=== PATIENT | female | born 1945 | race Caucasian/White ===

== ENCOUNTER 2021-05-24 08:58 | Outpatient (REF) | payer MEDICARE, SELFPAY ==
[2021-05-24 09:24] LABS: MANUAL DIFF FLAG NO
[2021-05-24 09:45] LABS: Basophils Absolute Auto 0.1 X10*3/uL (0.0-0.2); Basophils Percent Auto 0.6 % (0-2); Eosinophils Absolute Auto 0.2 X10*3/uL (0.0-0.4); Eosinophils Percent Auto 2.5 % (0-4); Hematocrit 39.5 % (37-47); Hemoglobin 13.6 g/dl (12.0-16.0); Imm Gran Abs Auto 0.03 X10*3/uL (0.00-0.03); Imm Gran Pct Auto 0.3 % (0.0-0.4); Lymphocytes Absolute Auto 3.2 X10*3/uL (1.2-4.9); Lymphocytes Percent Auto 36.2 % (20-40); Mean Corpuscular HGB Conc 34.4 g/dl (31.0-35.0); Mean Corpuscular Hemoglobin 30.6 pg (27.0-33.0); Mean Platelet Volume 9.6 fL (9.4-12.3); Monocytes Absolute Auto 0.6 X10*3/uL (0.1-1.2); Monocytes Percent Auto 6.8 % (2-11); Neutrophils Absolute Auto 4.8 X10*3/uL (2.0-8.3); Neutrophils Percent Auto 53.6 % (45-73); Platelet Count 256 X10*3/uL (160-400); Red Blood Count 4.44 X10*6/uL (4.20-5.50); Red Cell Distribution Width 13.7 % (11.0-16.0)
[2021-05-24 10:12] LABS: Rheumatoid Factor < 15.0 IU/mL (<15.0)
[2021-05-24 10:14] LABS: Alanine Aminotransferase 21 U/L (0-31); Albumin Level 4.2 g/dL (3.5-5.0); Alkaline Phosphatase 111 U/L (39-117); Anion Gap 12 (12-20); Aspartate Amino Transferase 20 U/L (5-31); Bilirubin Total 0.2 mg/dL (0.0-1.0); Blood Urea Nitrogen 8 mg/dL (9-16); Calcium 9.2 mg/dL (8.4-10.2); Carbon Dioxide 27 mmol/L (22-29); Chloride 104 mmol/L (96-108); Cholesterol 183 mg/dL; Estimated Glomerular Filt Rate > 60; Glucose Fasting 114 mg/dL (60-99); HDL Cholesterol 41 mg/dL; LDL Cholesterol Calculated 101 mg/dl; Potassium 3.9 mmol/L (3.3-5.1); Sodium 139 mmol/L (135-145); Total Protein 6.8 g/dL (6.5-8.0); Triglycerides 206 mg/dL
[2021-05-24 11:37] LABS: Creatinine Urine 40.35 mg/dL; Microalbum/Creatinine Ratio Ur 12.3 ug/mg cr
[2021-05-29 15:16] LABS: Vitamin D 25-OH, D2 40 ng/mL; Vitamin D 25-OH, D3 18 ng/mL; Vitamin D 25-OH, Total 58 ng/mL (30-100)
== END 2021-05-24 08:59 | disposition home or self-care (01) ==
LOC: HO.LAB 08:58
PROVIDERS: Nurse Practitioner Family; PCP Internal Medicine; Visit Provider Internal Medicine
DX: E11.9 Type 2 diabetes mellitus without complications (principal); E78.5 Hyperlipidemia, unspecified; E55.9 Vitamin D deficiency, unspecified; M19.90 Unspecified osteoarthritis, unspecified site; I10 Essential (primary) hypertension
CPT/HCPCS: 36415; 80053; 80061; 82043; 82306; 85025; 86431

== ENCOUNTER 2021-06-05 09:57 | Outpatient (AMB) | payer OTHER, SELFPAY ==
[2021-06-05 10:00] VITALS: BP 112/74; PULSE 64; TEMP 36; O2SAT 96; BMI 32.0
--- NOTE | 2021-06-05 10:00 | A.OFFPC_ITS ---
Vital Signs 06/05/21 10:00 06/05/21 10:29 Height 4 ft 8 in Weight 143 lb BMI 32.0 BP 112/74 140/90 H Blood Pressure Location Lt brachial Position Sitting Pulse 64 Pulse Source Pulse Oximeter Temp 96.8 F Temp Source Temporal Artery Scan Pulse Oximetry (%) 96 Oxygen Delivery Method Simple Mask Intake Visit Reasons: PE Control Panel Assembler Required: Yes Accompanied by: Self / Same As Patient Allergies Penicillins [PENICILLINS] Allergy (Mild, Verified 06/05/21 10:19) RASH Medication List - Last Reconciled 06/05/21 by Jeffy Wayne PA-C amlodipine 5 mg PO DAILY 90 days atorvastatin 20 mg PO DAILY 90 days blood sugar diagnostic (FreeStyle Lite Strips) 1 strip miscellaneous BID 90 days calcium citrate 500 mg (2 x 250 mg calcium) PO DAILY 90 days cyclobenzaprine 10 mg PO BEDTIME 30 days dicyclomine 20 mg PO QID 30 days docusate sodium 100 mg PO BID 90 days dulaglutide (Trulicity) 0.75 mg (0.5 mL) subcut QWEEK 30 days ergocalciferol (vitamin D2) 1,250 mcg PO QWEEK 30 days escitalopram oxalate 10 mg PO DAILY 90 days gabapentin 400 mg (1/2 x 800 mg) PO BID 90 days ibuprofen 800 mg PO Q8H 30 days PRN insulin glargine (Lantus U-100 Insulin) 40 units (0.4 mL) subcut DAILY 30 days lancets (TRUEplus Lancets) Use 1 lancet once a day lisinopril 20 mg PO DAILY 90 days melatonin 5 mg PO BEDTIME 90 days omeprazole 40 mg PO DAILY 90 days ondansetron 4 mg PO Q12H 30 days pen needle, diabetic (BD Ultra-Fine Marcella Pen Needle) As directed 4 times a day Tobacco use date assessed: 06/05/21 Fall risk assessment: No Falls in past year Last assessed Fall Risk: 06/05/21 HPI PE HPI Details Patient is a 75-year-old female here today for annual physical. Patient has a past medical history significant for hypertension, diabetes, hyperlipidemia. .. DMII: Patient's A1c today is 6.4. Continues on Trulicity and insulin the treatment of her diabetes. VAccine: UTD with COVID vaccine ,needs flu vaccine , UTD with tdap, NEed PCV. .. Mammo: Is interested in getting mammo will place the order .. [facility] Medical History Arthritis Diabetes Dyslipidemia Essential (primary) hypertension Surgical History History of section History of laparoscopic cholecystectomy Family History Father Hypertension Stroke Mother No problems noted. Son No problems noted. Brother No problems noted. Brother No problems noted. Brother No problems noted. Sister No problems noted. Daughter No problems noted. Daughter No problems noted. Social History Housing: Apartment Alcohol intake: never Patient Tobacco Use Status: Current everyday Tobacco user Cigarettes Per Day: 5 e-Cigarette/Vaping Use: Never Used Second Hand Smoke Exposure: No Questionnaire PHQ-9 Over the last 2 weeks, how often have you been bothered by any of the following problems? 1. Little interest or pleasure in doing things: not at all 2. Feeling down, depressed, or hopeless: not at all 3. Trouble falling or staying asleep, or sleeping too much: not at all 4. Feeling tired or having little energy: not at all 5. Poor appetite or overeating: not at all 6. Feeling bad about yourself - or that you are a failure or have let yourself or your family down: not at all 7. Trouble concentrating on things, such as reading the newspaper or watching television: not at all 8. Moving or speaking so slowly that other people could have noticed. Or the opposite - being so fidgety or restless that you have been moving around a lot more than usual: not at all 9. Thoughts that you would be better off or of hurting yourself in some way: not at all Total score: 0 Depression Screening Interpretation: Negative Source: Developed by Drs. John Vazquez, Brianne Pérez, Denis Fall and colleagues, with an educational radhika from [employer] Thrive Questionnaire Date Thrive assessed: 06/05/21 I am a: Patient What is your living situation today?: I have a steady place to live Within the past 12 months, did the food you bought not last and you didn't have the money to get more?: Never true Within the past 12 months, did you worry whether your food would run out before you got money to buy more?: Never true Do you have trouble paying for medicines?: No Do you have trouble getting transportation to medical appointments?: No Do you have trouble paying your heating and electricity bill?: No Do you have trouble taking care of your child, family member or friend?: No Do you have trouble with day-to-day activities such as bathing, preparing meals, shopping, managing finances, etc.?: No Are you currently unemployed and looking for a job?: No Are you interested in more education?: No Currently or been in a relationship where the following occur: no concerns reported AUDIT C Alcohol Use Questionnaire (AUDIT-C) 1. How often do you have a drink containing alcohol?: Never Total Score: 0 ANNA-7 AMB Questionnaire ANNA-7 Date ANNA - 7 assessed: 06/05/21 Feeling nervous, anxious, or on edge: 1 = Several days Not being able to stop or control worryin = Several days Worrying too much about different things: 1 = Several days Trouble relaxin = Several days Being so restless that it is hard to sit still: 1 = Several days Becoming easily annoyed or irritable: 1 = Several days Feeling afraid as if something awful might happen: 1 = Several days Total ANNA-7 score (0-4 normal; 5-9 mild; 10-14 moderate; 15-21 severe): 7 Source: Developed by Drs. John Vazquez, Brianne Pérez, Denis Fall and colleagues, with an educational radhika from [employer] Review of Systems Const Denies body aches, Denies chills, Denies excessive sweating, Denies fatigue, Denies fever(s) and Denies headache(s) Eyes Denies blurry vision ENT Denies dysphagia, Denies vertigo, Denies dizziness, Denies headache(s), Denies hearing loss and Denies tinnitus Card Denies chest pain, Denies chest pain with activity, Denies syncope, Denies irregular heart rhythm and Denies dyspnea Resp Denies chest congestion, Denies cough, Denies hemoptysis, Denies dyspnea and Denies wheezing GI Denies abdominal pain, Denies melena, Denies hematochezia, Denies coffee ground emesis, Denies dysphagia, Denies diarrhea, Denies nausea and Denies vomiting Denies urinary frequency, Denies dysuria, Denies urinary hesitancy and Denies urinary urgency Musc Denies arthralgias, Denies limited range of motion, Denies muscle cramps and Denies muscle weakness Skin/Breast Denies rash and Denies skin ulcer Neuro Denies Abnormal speech present, Denies confusion, Denies vertigo, Denies dizziness, Denies syncope, Denies headache(s), Denies memory loss and Denies seizure-like activity Psych Denies anxiety, Denies confusion, Denies depression, Denies memory loss, Denies panic attacks and Denies paranoia Endo Denies excessive sweating, Denies fatigue, Denies flushing, Denies polydipsia and Denies polyuria Aller/Immun Denies wheezing Physical exam (Primary Care) Vital Signs: Last Vital Signs Temp 96.8 F 06/05/21 10:00 Pulse 64 06/05/21 10:00 BP 140/90 H 06/05/21 10:29 Pulse Ox 96 06/05/21 10:00 Oxygen Delivery Method Simple Mask 06/05/21 10:00 Body Mass Index 32.0 Tobacco/Smoking Status: Tobacco use Status Tobacco use date assessed 06/05/21 06/05/21 10:09 Patient Tobacco Use Status Current everyday Tobacco 06/05/21 10:09 e-Cigarette/Vaping Use Never Used 06/05/21 10:09 Tobacco cessation counseling provided: Yes Relapse Prevention: discussed negative mood or depression after quitting, weight gain after smoking is common and discussed dietary, exercise and/or lifestyle changes Number of minutes spent counselin CPT code: 58982 - 4-10 Minutes PHQ-9: PHQ-9 Score PHQ-9: Total score 0 06/05/21 11:09 Depression Screening Interpretation: Negative Thrive Assessment: Date of Thrive Assessment Date Thrive assessed 06/05/21 06/05/21 10:09 Currently or been in a relationship where the following occur: no concerns reported Const Other: OBESE General: cooperative, comfortable, no acute distress, alert and awake; No confusion Orientation/consciousness: oriented to person, oriented to place, patient oriented x3 and No confusion HENCO Head: Yes normocephalic Ears: external ears normal and TM's normal bilaterally Face and sinus: No sinus tenderness Mouth: Normal oral and palatal mucosa present and tongue normal Teeth and gingiva: dentition normal and gingiva normal Throat: Yes posterior oropharynx normal, Yes tonsils normal and Yes uvula midline Eyes Conjunctivae: conjunctivae normal Sclerae: sclerae normal Pupils: Equal, round and reactive pupils present EOM: EOMs intact bilaterally Direct Ophthalmoscopy: No no photophobia Neck Neck: Yes no lymphadenopathy, No tender and Yes no JVD Thyroid: Thyroid normal Carotids: no bruits Chest Chest palpation & inspection: no tenderness Resp Effort & Inspection: normal respiratory effort, no audible wheezes, not labored and no stridor Auscultation: no crackles, no rales, no rhonchi and no wheezes Cardio Jugular venous distension: no JVD Rate: regular rate, not bradycardic and not tachycardic Rhythm: regular rhythm Bruits: no carotid bruits Peripheral pulses: Peripheral pulses 2+ throughout GI Inspection: Yes normal to inspection, No abdominal wall ecchymosis and No visible herniation Palpation (GI): Soft to palpation, nontender, no guarding, not rigid and No he patosplenomegaly present Auscultation: normoactive bowel sounds General: Yes no CVA tenderness Back/Spine/Pelvis Back: no CVA tenderness and No back tenderness Cervical Spine: cervical ROM normal Thoracic/Lumbar Spine: thoracic and lumbar spine normal to inspection, straight leg raise negative bilaterally, No thoraco-lumbar ROM limited and No lumbar spinal tenderness Skin Lesions: no lesions Rashes: no rashes Wounds: no wounds Neuro General: oriented to person, oriented to place, patient oriented x3, CN's II-XI intact bilaterally and No confusion Cranial nerves: Yes Equal, round and reactive pupils present and Yes Normal accommodation reflex present Cognition (Neuro): normal cognition Speech: No Abnormal speech present Gait exam (Neuro): Normal gait present Motor exam (neuro): 5/5 motor strength present throughout Extrem Right upper extremity: full ROM; No no cyanosis Left upper extremity: full ROM; No no cyanosis Right lower extremity: No no edema Left lower extremity: No no edema Psych Appearance: grossly normal Mental Status: mental status grossly normal Affect: normal affect Attitude: cooperative Thought process: Normal thought process present Office Procedures Flu Questionnaire Does the patient have a severe egg allergy?: No Does the patient have severe life threatening allergies?: No Does the patient have a fever or illness today?: No Has the patient ever had Guillain-[place] Syndrome?: No Has the patient ever had any past reaction to a flu shot?: No Immunizations flu vacc [id number] 6mos up(PF) Performing Provider: Jeffy Wayne PA-C Administered by: MARIA ISABEL Trevino on 06/05/21 11:06 Dose Route Admin Location Lot Number Expiration Date ND Personal Attendant 0.5 mL IM Left Deltoid [id number] 01/24/22 [id number] [id number] VIS Given Date VIS Provided VIS Publication Date 06/05/21 Single Vaccine 21 Eligibility Eligibility Date Funding Source Not VFC Eligible 06/05/21 Private Pneumovax-23 Performing Provider: Jeffy Wayne PA-C Administered by: MARIA ISABEL Trevino on 06/05/21 11:06 Dose Route Admin Location Lot Number Expiration Date ND Personal Attendant 0.5 mL IM Right Deltoid [id number] 05/25/22 [id number] [employer] & D VIS Given Date VIS Provided VIS Publication Date 06/05/21 Single Vaccine 19 Eligibility Eligibility Date Funding Source Not VFC Eligible 06/05/21 Private Assessment and Plan Assessment & Plan (1) Annual physical exam: Code(s): Z00.00 - Encounter for general adult medical examination without abnormal findings (2) Diabetes: Code(s): E11.9 - Type 2 diabetes mellitus without complications Qualifiers: Diabetes mellitus complication status: with hyperglycemia Diabetes mellitus salvage determiner insulin use: with salvage determiner use Diabetes mellitus type: type 2 Qualified Code(s): E11.65 - Type 2 diabetes mellitus with hyperglycemia; Z79.4 - ad terminal makeup operator (current) use of insulin Plan: Patient with type 2 diabetes well controlled. Continues on insulin therapies. Goal A1c is to be below 7. Also will need diabetic eye exam to rule out retinopathy. She is requesting to have a clip loading machine adjuster for her eye appointment. (3) Essential (primary) hypertension: Code(s): I10 - Essential (primary) hypertension Plan: Blood pressure in office acceptable today. Goal blood pressure be below 140/90 (4) Dyslipidemia: Code(s): E78.5 - Hyperlipidemia, unspecified (5) Smoking: Code(s): F17.200 - Nicotine dependence, unspecified, uncomplicated Plan: Patient does understand she needs to quit smoking though has found it very difficult. She does report smoking over the last 50 years. Offered her nicotine replacement though she declines offers. (6) Breast cancer screening: Code(s): Z12.39 - Encounter for other screening for malignant neoplasm of breast Qualifiers: Breast cancer screening modality: mammogram Qualified Code(s): Z12.31 - Encounter for screening mammogram for malignant neoplasm of breast Plan: Patient is in need of up-to-date mammogram thus will place order. (7) Obese: Code(s): E66.9 - Obesity, unspecified Qualifiers: Obesity type: due to excess calories Obesity classification: adult class 1 (BMI 30 - 34.9) Serious obesity comorbidity presence: with serious comorbidity Body mass index: BMI 32.0-32.9 Qualified Code(s): E66.09 - Other obesity due to excess calories; Z68.32 - Body mass index [BMI] 32.0-32.9, adult Plan: Patient does understand her BMI is over 30 and will work on being more physically active and addendum better eating habits to reduce her weight. Orders: Orders MM screening mammo BI Today Z12.31 - Encounter for screening mammogram for malignant neoplasm of breast, Z12.39 - Encounter for other screening for malignant neoplasm of breast Influenza [id number] Immunization Today Z23 - Encounter for immunization Pneumococcal 23 Immunization Today Z23 - Encounter for immunization AMB Hemoglobin A1c Today E11.9 - Type 2 diabetes mellitus without complications Referrals Ophthalmology Referral E11.65 - Type 2 diabetes mellitus with hyperglycemia, Z79.4 - ad terminal makeup operator (current) use of insulin Coding Level of Care Code Est Pt Prev Care >65y([id number]) Diagnoses Annual physical exam Z00.00 Diabetes E11.65; Z79.4 Diabetes mellitus complication status: with hyperglycemia Diabetes mellitus alf insulin use: with alf use Diabetes mellitus type: type 2 Essential (primary) hypertension I10 Dyslipidemia E78.5 Smoking F17.200 Breast cancer screening Z12.31 Breast cancer screening modality: mammogram Obese E66.09; Z68.32 Obesity type: due to excess calories Obesity classification: adult class 1 (BMI 30 - 34.9) Serious obesity comorbidity presence: with serious comorbidity Body mass index: BMI 32.0-32.9 Additional Codes Vital Signs *Quality* - CPT code: 72150 - 4-10 Minutes ([id number])
[2021-06-05 10:29] VITALS: BP 140/90
== END 2021-06-05 10:53 | disposition home or self-care (01) ==
LOC: HO.HMGH 09:57
PROVIDERS: PCP Internal Medicine; Visit Provider Physician Assistant
DX: E11.9 Type 2 diabetes mellitus without complications (principal)
CPT/HCPCS: 83036; 90471; 90472; 90686; 90732; 99397; 99406

== ENCOUNTER 2021-07-26 13:09 | Outpatient (REF) | payer MEDICARE, SELFPAY ==
--- NOTE | ~2021-07-26 | MM_ITS ---
EXAMINATION: MM SCREENING DIGITAL BREAST TOMOSYNTHESIS, BILATERAL CLINICAL INFORMATION: Screening. Asymptomatic. The lifetime risk of breast cancer based on the Tyrer-Cuzick Model is 2%. COMPARISON: Mammography: 03/30/2019, 02/11/2018 TECHNIQUE: Digital breast tomosynthesis is performed in both the craniocaudal and mediolateral oblique views along with computer-aided detection (CAD). Synthesized 2D images are generated from the tomosynthesis. Case discussed with the medical technologist blood bank. FINDINGS: There are scattered areas of fibroglandular density (ACR BI-RADS breast composition Category b). The left breast is unremarkable. There is no mass or architectural abnormality. Neither breast shows abnormal calcifications. The axilla are unremarkable. Right MLO view has a 0.6 cm nodular asymmetry inferior lateral breast mid distance from nipple, not appreciated on CC view. Finding appears close to the skin and may represent a dermal or intradermal lesion. Patient will be recalled for additional imaging. MM/MM tomosynthesis screening BI IMPRESSION: 1. Right: Nodular asymmetric density close to skin mid inferolateral right breast on MLO view. 2. Left: No mammographic evidence of malignancy. ASSESSMENT: BI-RADS 0: Incomplete - Need Additional Imaging Evaluation RECOMMENDATION: 1. Assess for dermal lesion and obtain additional right breast views with dermal marker, if applicable. 2. Otherwise, targeted right breast ultrasound if warranted. 3. Radiology department staff will contact the patient for additional imaging. This patient's information was entered into a reminder system with a target due date for their next mammogram.
== END 2021-07-26 13:10 | disposition home or self-care (01) ==
LOC: HO.MAMMO 13:09
PROVIDERS: Visit Provider Internal Medicine
DX: Z12.31 Encounter for screening mammogram for malignant neoplasm of breast (principal)
CPT/HCPCS: 77063; 77067

== ENCOUNTER 2021-08-27 14:32 | Outpatient (REF) | payer MEDICARE, SELFPAY ==
--- NOTE | ~2021-08-27 | MM_ITS ---
EXAMINATION: MM DIAGNOSTIC DIGITAL BREAST TOMOSYNTHESIS, RIGHT CLINICAL INFORMATION: Recall for nodular asymmetric density close to skin mid inferior lateral right breast. COMPARISON: Mammography: 07/26/2021, 03/30/2019 TECHNIQUE: Digital breast tomosynthesis is performed. 2D images are generated from the tomosynthesis. The following views are obtained: CC and MLO views with dermal marker. FINDINGS: There are scattered areas of fibroglandular density (ACR BI-RADS breast composition Category b). The nodular asymmetric density corresponds to a dermal lesion marked with skin marker. Results are discussed with the patient at time of visit using an lang interpreter. Clinical inspection notes finding on mammography to correspond to visible dermal lesion. Patient claims the finding has been present for many years without change. MM/MM tomosynthesis added views R IMPRESSION: Asymmetric density on recent screening mammography corresponds to a dermal lesion, chronic by patient history. ASSESSMENT: BI-RADS 2: Benign RECOMMENDATION: Routine annual mammography screening. This patient's information was entered into a reminder system with a target due date for their next mammogram.
== END 2021-08-27 14:33 | disposition home or self-care (01) ==
LOC: HO.MAMMO 14:32
PROVIDERS: Visit Provider Internal Medicine
DX: N64.89 Other specified disorders of breast (principal)
CPT/HCPCS: 77061; 77065

== ENCOUNTER 2022-06-14 09:58 | Outpatient (REF) | payer OTHER, SELFPAY ==
[2022-06-14 11:06] LABS: Creatinine Urine 137.08 mg/dL; Microalbumin Urine < 5.0 mg/L
[2022-06-14 11:08] LABS: Alanine Aminotransferase 20 U/L (0-31); Alkaline Phosphatase 106 U/L (39-117); Anion Gap 12 (12-20); Aspartate Amino Transferase 18 U/L (5-31); Bilirubin Total 0.7 mg/dL (0.0-1.0); Blood Urea Nitrogen 6 mg/dL (9-16); Calcium 9.8 mg/dL (8.4-10.2); Carbon Dioxide 33 mmol/L (22-29); Chloride 101 mmol/L (96-108); Cholesterol 188 mg/dL; Estimated Glomerular Filt Rate > 60; Glucose Fasting 91 mg/dL (60-99); HDL Cholesterol 36 mg/dL; LDL Cholesterol Calculated 109 mg/dl; Potassium 3.6 mmol/L (3.3-5.1); Sodium 142 mmol/L (135-145); Total Protein 6.5 g/dL (6.5-8.0); Triglycerides 217 mg/dL
== END 2022-06-14 09:59 | disposition home or self-care (01) ==
LOC: HO.LAB 09:58
PROVIDERS: PCP Internal Medicine; Visit Provider Internal Medicine
DX: E11.65 Type 2 diabetes mellitus with hyperglycemia (principal); E78.5 Hyperlipidemia, unspecified; Z79.4 Long term (current) use of insulin
CPT/HCPCS: 36415; 80053; 80061; 82043

== ENCOUNTER 2022-10-22 12:14 | Outpatient (REF) | payer OTHER, SELFPAY ==
--- NOTE | ~2022-10-22 | MM_ITS ---
EXAMINATION: MM SCREENING DIGITAL BREAST TOMOSYNTHESIS, BILATERAL CLINICAL INFORMATION: Screening. Asymptomatic. The lifetime risk of breast cancer based on the Tyrer-Cuzick Model is 2.1%. COMPARISON: Mammography: August 27, 2021 and studies dating back to January 01, 2016 TECHNIQUE: Digital breast tomosynthesis is performed in both the craniocaudal and mediolateral oblique views along with computer-aided detection (CAD). Synthesized 2D images are generated from the tomosynthesis. FINDINGS: There are scattered areas of fibroglandular density (ACR BI-RADS breast composition Category b). There are no significant masses, abnormal calcifications, or other abnormalities. MM/MM tomosynthesis screening BI IMPRESSION: No significant changes from prior exam. ASSESSMENT: BI-RADS 1: Negative RECOMMENDATION: Routine annual mammography screening. This patient's information was entered into a reminder system with a target due date for their next mammogram.
[2022-10-22 15:24] LABS: Creatinine Urine 125.82 mg/dL; Microalbum/Creatinine Ratio Ur 9.5 ug/mg cr
[2022-10-22 16:21] LABS: Alanine Aminotransferase 20 U/L (0-31); Albumin Level 4.1 g/dL (3.5-5.0); Alkaline Phosphatase 117 U/L (39-117); Anion Gap 11 (12-20); Aspartate Amino Transferase 17 U/L (5-31); Bilirubin Total 0.5 mg/dL (0.0-1.0); Blood Urea Nitrogen 8 mg/dL (9-16); Calcium 9.6 mg/dL (8.4-10.2); Carbon Dioxide 33 mmol/L (22-29); Chloride 104 mmol/L (96-108); Cholesterol 202 mg/dL; Estimated Glomerular Filt Rate > 60; Glucose Random 118 mg/dL (60-115); HDL Cholesterol 38 mg/dL; LDL Cholesterol Calculated 125 mg/dl; Potassium 4.4 mmol/L (3.3-5.1); Sodium 144 mmol/L (135-145); Total Protein 6.5 g/dL (6.5-8.0); Triglycerides 199 mg/dL
== END 2022-10-22 12:15 | disposition home or self-care (01) ==
LOC: HO.MAMMO 12:14
PROVIDERS: PCP Internal Medicine; Visit Provider Internal Medicine
DX: E78.5 Hyperlipidemia, unspecified (principal); E11.9 Type 2 diabetes mellitus without complications; E55.9 Vitamin D deficiency, unspecified; Z12.31 Encounter for screening mammogram for malignant neoplasm of breast
CPT/HCPCS: 36415; 77063; 77067; 80053; 80061; 82043; 82306

== ENCOUNTER → 2023-03-20 13:52 | Outpatient (BNVA) | payer OTHER, SELFPAY | PROVIDERS: PCP Internal Medicine; Visit Provider Nurse Practitioner ==

== ENCOUNTER 2023-10-28 11:40 | Outpatient (REF) | payer OTHER, SELFPAY | END 2023-10-28 11:41 | disposition home or self-care (01) | LOC: HO.MAMMO 11:40 | PROVIDERS: Visit Provider Internal Medicine | DX: Z12.31 Encounter for screening mammogram for malignant neoplasm of breast (principal) | CPT/HCPCS: 77063; 77067 ==

== ENCOUNTER → 2023-10-28 12:00 | Outpatient (BNV) | payer OTHER, SELFPAY | PROVIDERS: Visit Provider Radiology Diagnostic Radiology | DX: Z12.31 Encounter for screening mammogram for malignant neoplasm of breast (principal) | CPT/HCPCS: 77063; 77067 ==

== ENCOUNTER 2023-11-12 16:09 | Outpatient (AMB) | payer OTHER, SELFPAY ==
--- NOTE | 2023-11-12 16:13 | A.OFFPC_ITS ---
Vital Signs 11/12/23 16:18 Height 4 ft 8 in Weight 130 lb BMI 29.1 BP 152/80 H Blood Pressure Location Lt brachial Position Sitting Intake Visit Reasons: 4 mth follow up Intake Note: Patient here for a 4 month follow up, neurology referral request Fiber Technician Required: No Accompanied by: Daughter Allergies Penicillins [PENICILLINS] Allergy (Mild, Verified 11/12/23 16:20) RASH Medication List - Last Reconciled 11/12/23 by Amelia Banuelos MD [adult pullups As directed] amlodipine 5 mg PO DAILY 90 days atorvastatin 80 mg PO BEDTIME 90 days blood sugar diagnostic (FreeStyle Lite Strips) 1 strip miscellaneous BID 90 days calcium citrate 500 mg (2 x 250 mg calcium) PO DAILY 90 days cyclobenzaprine 10 mg PO BEDTIME 30 days dicyclomine 20 mg PO QID 30 days disposable gloves medium sized gloves docusate sodium 100 mg PO BID 90 days ergocalciferol (vitamin D2) 1,250 mcg PO QWEEK 30 days escitalopram oxalate 10 mg PO DAILY 90 days gabapentin 800 mg PO BID 90 days insulin glargine (Lantus U-100 Insulin) 40 units (0.4 mL) subcut DAILY 30 days lancets (TRUEplus Lancets) Use 1 lancet once a day lisinopril 20 mg PO DAILY 90 days omeprazole 40 mg PO DAILY 90 days ondansetron 4 mg PO Q12H 30 days peg 3350-electrolytes 236-22.74-6.74 -5.86 gram (Golytely) 240 mL PO Q10M 1 day pen needle, diabetic (BD Ultra-Fine Marcella Pen Needle) As directed 4 times a day [recliner As directed] [sanitary pads As directed] trazodone 50 mg PO BEDTIME PRN 90 days Tobacco use date assessed: 11/12/23 Fall risk assessment: No Falls in past year Last assessed Fall Risk: 11/12/23 Dental Screening Dental Screen Date: 11/12/23 Did you have a dental visit in the last 12 months?: No Did you have a dental problem in the last 6 months where you did not have access to dental care?: No Was dental information given to patient?: Patient declined HPI HPI Comments History of Present Illness Details This is a 77-year-old female with diabetes mellitus type 2, hypertension, hyperlipidemia, chronic GERD, mild major depression and urge urinary incontinence that comes today accompanied by daughter for follow-up on her conditions. A1c elevated and I will increase long-acting insulin from 40 units to 43 units once a day. Blood pressure elevated but she has been out of her medications. Blood pressure will be recheck in 3 weeks by nurse navigator. Lipid panel will be order and her LDL goal should be less than 70. GERD stable with PPIs. Depression somewhat control with escitalopram. Denies any chest pain or shortness of breath. Daughter complains that she forgets some things and she repeats herself multiple times and she does not recognize this. This is why we will refer her to Neurology. She also has urge urinary incontinence and benefits from using sanitary pad and occasionally pull up diapers. [facility] Medical History (Updated 11/12/23 @ 20:04 by Amelia Banuelos MD) Essential (primary) hypertension Dyslipidemia Arthritis Surgical History History of laparoscopic cholecystectomy History of section Family History Father Hypertension Stroke Mother No problems noted. Son No problems noted. Brother No problems noted. Brother No problems noted. Brother No problems noted. Sister No problems noted. Daughter No problems noted. Daughter No problems noted. Social History Housing: Apartment Alcohol intake: never Patient Tobacco Use Status: Current everyday Tobacco user Cigarette Packs Per Day: 1 e-Cigarette/Vaping Use: Never Used Second Hand Smoke Exposure: No service: No Current occupational status: disabled Cognitive needs: Yes Hearing needs: No Vision needs: No Questionnaire PHQ-9 Over the last 2 weeks, how often have you been bothered by any of the following problems? 1. Little interest or pleasure in doing things: not at all 2. Feeling down, depressed, or hopeless: nearly every day 3. Trouble falling or staying asleep, or sleeping too much: nearly every day 4. Feeling tired or having little energy: nearly every day 5. Poor appetite or overeating: not at all 6. Feeling bad about yourself - or that you are a failure or have let yourself or your family down: several days 7. Trouble concentrating on things, such as reading the newspaper or watching television: several days 8. Moving or speaking so slowly that other people could have noticed. Or the opposite - being so fidgety or restless that you have been moving around a lot more than usual: several days 9. Thoughts that you would be better off or of hurting yourself in some way: not at all Total score: 12 Depression Screening Interpretation: Positive Depression Screening Follow-up: Existing condition and In treatment Depression Screening Done: Yes 61012 - PHQ-9 Billing: Yes Source: Developed by Drs. John Vazquez, Brainne Pérez, Denis Fall and colleagues, with an educational radhika from [employer]. Thrive Questionnaire Date Thrive assessed: 11/12/23 I am a: Patient What is your living situation today?: I have a steady place to live Within the past 12 months, did the food you bought not last and you didn't have the money to get more?: Never true Within the past 12 months, did you worry whether your food would run out before you got money to buy more?: Never true Do you have trouble paying for medicines?: No Do you have trouble getting transportation to medical appointments?: No Do you have trouble paying your heating and electricity bill?: No Do you have trouble taking care of your child, family member or friend?: No Do you have trouble with day-to-day activities such as bathing, preparing meals, shopping, managing finances, etc.?: No Are you currently unemployed and looking for a job?: No Are you interested in more education?: No Please select the resources that you would like help with: None Currently or been in a relationship where the following occur: no concerns reported THRIVE Score: 0 AUDIT C Alcohol Use Questionnaire (AUDIT-C) 1. How often do you have a drink containing alcohol?: Never Total Score: 0 ANNA-7 AMB Questionnaire ANNA-7 Date ANNA - 7 assessed: 11/12/23 Feeling nervous, anxious, or on edge: 3 = Nearly every day Not being able to stop or control worryin = Not at all Worrying too much about different things: 3 = Nearly every day Trouble relaxin = Not at all Being so restless that it is hard to sit still: 0 = Not at all Becoming easily annoyed or irritable: 3 = Nearly every day Feeling afraid as if something awful might happen: 0 = Not at all Total ANNA-7 score (0-4 normal; 5-9 mild; 10-14 moderate; 15-21 severe): 9 Source: Developed by Drs. John Vazquez, Brianne Pérez, Denis Fall and colleagues, with an educational radhika from [employer]. ANNA-7 Assessment Billing ANNA-7 Assessment Tool: ANNA-7 Assessment 17867 Review of Systems Const All systems reviewed & are unremarkable except as noted in HPI and below Eyes Reports no additional complaints, Denies change in vision and Denies other visual disturbances Card Denies chest pain at rest, Denies chest pain with activity, Denies edema, Denies irregular heart rhythm, Denies claudication, Denies dyspnea, Denies dyspnea on exertion, Denies orthopnea, Denies paroxysmal nocturnal dyspnea and Denies slow heart rate Resp Denies cough, Denies dyspnea and Denies dyspnea on exertion Reports urinary incontinence Physical exam (Primary Care) Vital Signs: Last Vital Signs BP 152/80 H 11/12/23 16:18 BMI result Body Mass Index 29.1 Tobacco/Smoking Status: Tobacco use Status Tobacco use date assessed 11/12/23 11/12/23 16:26 Patient Tobacco Use Status Current everyday Tobacco 11/12/23 16:15 e-Cigarette/Vaping Use Never Used 11/12/23 16:15 Are you ready to quit: No Tobacco cessation counseling provided: No PHQ-9: PHQ-9 Score PHQ-9: Total score 12 11/12/23 16:51 Depression Screening Interpretation: Positive Depression Screening Follow-up: Existing condition and In treatment Thrive Assessment: Date of Thrive Assessment Date Thrive assessed 11/12/23 11/12/23 16:26 Currently or been in a relationship where the following occur: no concerns reported Resp Effort & Inspection: normal respiratory effort Auscultation: clear to auscultation bilaterally Cardio Jugular venous distension: no JVD Rate: regular rate Rhythm: regular rhythm Heart sounds: S1 normal heart sound present and S2 normal heart sound present Extrem General: Yes full ROM Assessment and Plan Assessment & Plan (1) Diabetes mellitus, with long-term current use of insulin: Code(s): E11.9 - Type 2 diabetes mellitus without complications; Z79.4 - keno terminal operator (current) use of insulin Plan: Increase long-acting insulin. A1c goal is equal or less than 7%. (2) Chronic GERD: Code(s): K21.9 - Gastro-esophageal reflux disease without esophagitis Plan: Continue PPIs. (3) Hyperlipidemia LDL goal <70: Code(s): E78.5 - Hyperlipidemia, unspecified Plan: Continue statins. Repeat lipid panel. LDL goal is less than 70. (4) Essential (primary) hypertension: Code(s): I10 - Essential (primary) hypertension Plan: Continue lisinopril and amlodipine. Blood pressure goal is equal or less than 130/80. (5) Mild major depression: Code(s): F32.0 - Major depressive disorder, single episode, mild Plan: Continue escitalopram. (6) Urge urinary incontinence: Code(s): N39.41 - Urge incontinence Plan: Continue sanitary pads, wipes and pull-ups as needed. Orders: Orders Lipid Panel Today E78.5 - Hyperlipidemia, unspecified Microalbumin, Random (w Creat) Today E11.9 - Type 2 diabetes mellitus without complications Vitamin D 25-OH Total Today E55.9 - Vitamin D deficiency, unspecified Comprehensive [place]. Panel Fast Today E11.9 - Type 2 diabetes mellitus without complications, Z79.4 - penitentiary (current) use of insulin Referrals Neurology Referral R41.89 - Other symptoms and signs involving cognitive functions and awareness Medications: New [wipes] As directed 200 ea 11RF N39.41 - Urge incontinence Changed From gabapentin 800 mg PO BID 90 days 180 tabs 1RF To gabapentin 800 mg PO TID 90 days 270 tabs 1RF From insulin glargine (Lantus U-100 Insulin) 40 units (0.4 mL) subcut DAILY 30 days 12 mL 6RF To insulin glargine (Lantus U-100 Insulin) 43 units (0.43 mL) subcut DAILY 30 days 12.9 mL 6RF Refilled calcium citrate 500 mg (2 x 250 mg calcium) PO DAILY 90 days 180 tabs 3RF cyclobenzaprine 10 mg PO BEDTIME 30 days 30 tabs 3RF dicyclomine 20 mg PO QID 30 days 120 tabs 3RF docusate sodium 100 mg PO BID 90 days 180 caps 3RF ergocalciferol (vitamin D2) 1,250 mcg PO QWEEK 30 days 5 caps 1RF lisinopril 20 mg PO DAILY 90 days 90 tabs 3RF omeprazole 40 mg PO DAILY 90 days 90 caps 3RF [adult pullups] As directed 90 ea 12RF N39.41 - Urge incontinence amlodipine 5 mg PO DAILY 90 days 90 tabs 3RF atorvastatin 80 mg PO BEDTIME 90 days 90 tabs 1RF escitalopram oxalate 10 mg PO DAILY 90 days 90 tabs 1RF trazodone 50 mg PO BEDTIME 90 days PRN 60 tabs 1RF sleep [sanitary pads] As directed 120 ea 12RF N39.41 - Urge incontinence Coding Level of Care Code Est Pt Level 4 (39624) Diagnoses Diabetes mellitus, with long-term current use of insulin E11.9; Z79.4 Chronic GERD K21.9 Hyperlipidemia LDL goal <70 E78.5 Essential (primary) hypertension I10 Mild major depression F32.0 Urge urinary incontinence N39.41 Additional Codes ANNA-7 Assessment Billing - ANNA-7 Assessment Tool: ANNA-7 Assessment 36563 ([id number]) Time Spent (min) 24
[2023-11-12 16:18] VITALS: BP 152/80; BMI 29.1
== END 2023-11-12 17:02 | disposition home or self-care (01) ==
PROVIDERS: PCP Internal Medicine; Visit Provider Internal Medicine
DX: E11.9 Type 2 diabetes mellitus without complications (principal); Z79.4 Long term (current) use of insulin; K21.9 Gastro-esophageal reflux disease without esophagitis; E78.5 Hyperlipidemia, unspecified; I10 Essential (primary) hypertension; F32.0 Major depressive disorder, single episode, mild; N39.41 Urge incontinence
CPT/HCPCS: 99214

== ENCOUNTER 2024-06-15 13:51 | Outpatient (AMB) | payer OTHER, SELFPAY ==
--- NOTE | 2024-06-15 14:02 | MHC.PC.OV ---
Vital Signs 06/15/24 14:15 Height 4 ft 8 in Weight 132 lb 4 oz BMI 29.6 BP 152/84 H Blood Pressure Location Lt brachial Position Sitting Intake Visit Reasons: PE Intake Note: Patient here for a physical exam Rn Emergency Required: No Accompanied by: Daughter Allergies Penicillins [PENICILLINS] Allergy (Mild, Verified 06/15/24 14:27) RASH Medication List - Last Reconciled 06/15/24 by Amelia Banuelos MD [adult pullups As directed] amlodipine 5 mg PO DAILY 90 days atorvastatin 80 mg PO BEDTIME 90 days blood sugar diagnostic (FreeStyle Lite Strips) 1 strip miscellaneous BID 90 days calcium citrate 500 mg (2 x 250 mg calcium) PO DAILY 90 days cyclobenzaprine 10 mg PO BEDTIME 30 days dicyclomine 20 mg PO QID 30 days disposable gloves medium sized gloves docusate sodium 100 mg PO BID 90 days ergocalciferol (vitamin D2) 1,250 mcg PO QWEEK 30 days escitalopram oxalate 10 mg PO DAILY 90 days gabapentin 800 mg PO TID 90 days insulin glargine (Lantus U-100 Insulin) 43 units (0.43 mL) subcut DAILY 30 days lancets (TRUEplus Lancets) Use 1 lancet once a day lisinopril 20 mg PO DAILY 90 days omeprazole 40 mg PO DAILY 90 days ondansetron 4 mg PO Q12H 30 days peg 3350-electrolytes 236-22.74-6.74 -5.86 gram (Golytely) 240 mL PO Q10M 1 day pen needle, diabetic (BD Ultra-Fine Marcella Pen Needle) As directed 4 times a day [recliner As directed] [sanitary pads As directed] trazodone 50 mg PO BEDTIME PRN 90 days [wipes As directed] Tobacco use date assessed: 11/12/23 Fall risk assessment: No Falls in past year Last assessed Fall Risk: 06/15/24 Dental Screening Dental Screen Date: 11/12/23 HPI HPI Comments History of Present Illness Details The patient is a 78-year-old female presenting with essential hypertension, hypercholesterolemia, type 2 diabetes mellitus, and associated chronic conditions. She reports an allergy to penicillin, manifesting as a rash. Her hypertension is being managed with amlodipine, although adherence to daily intake is inconsistent. Her diabetes management currently includes Lantus injections, with a recent increase in dosage from 43 to 45 units due to an A1c of 8.3%, elevated from the target of less than 7%. She also takes atorvastatin for hypercholesterolemia, with LDL levels recently noted at 125 mg/dL, higher than the desired level of 70 mg/dL. The patient experiences muscle pain and is given Flexeril as needed. She also manages dyspepsia and stomach pain with Dicyclomine. Past laboratory workups include cholesterol and A1c assessments. The patient reports consistent anxiety and depression managed with Escitalopram. Notably, she has smoked approximately 10 cigarettes per day since her teenage years, contributing to a longstanding tobacco use disorder. The patient has not attempted to quit smoking previously. [facility] Medical History Essential (primary) hypertension Dyslipidemia Arthritis Surgical History History of laparoscopic cholecystectomy History of section Family History Father Hypertension Stroke Mother No problems noted. Son No problems noted. Brother No problems noted. Brother No problems noted. Brother No problems noted. Sister No problems noted. Daughter No problems noted. Daughter No problems noted. Social History (Updated 06/15/24 @ 14:32 by Amelia Banuelos MD) Housing: Apartment Alcohol intake: never Patient Tobacco Use Status: Current everyday Tobacco user Cigarettes Per Day: 10 e-Cigarette/Vaping Use: Never Used Second Hand Smoke Exposure: No service: No Current occupational status: disabled Cognitive needs: Yes Hearing needs: No Vision needs: No Questionnaire Thrive Questionnaire Date Thrive assessed: 11/12/23 ANNA-7 AMB Questionnaire ANNA-7 Date ANNA - 7 assessed: 11/12/23 Source: Developed by Drs. John Vazqeuz, Brianne Pérez, Denis Fall and colleagues, with an educational radhika from [employer]. Review of Systems Const All systems reviewed & are unremarkable except as noted in HPI and below Card Denies chest pain at rest, Denies chest pain with activity, Denies edema, Denies irregular heart rhythm, Denies claudication, Denies dyspnea, Denies dyspnea on exertion, Denies orthopnea, Denies paroxysmal nocturnal dyspnea and Denies slow heart rate Resp Denies cough, Denies dyspnea and Denies dyspnea on exertion Physical exam (Primary Care) Vital Signs: Last Vital Signs BP 152/84 H 06/15/24 14:15 BMI result Body Mass Index 29.6 BMI Assessment/Plan discussion: High BMI High, discussed plan: lifestyle, weight reduction, dietary and physical activity Tobacco/Smoking Status: Tobacco use Status Tobacco use date assessed 11/12/23 06/15/24 14:07 Patient Tobacco Use Status Current everyday Tobacco 06/15/24 14:32 e-Cigarette/Vaping Use Never Used 06/15/24 14:32 Are you ready to quit: No Tobacco cessation counseling provided: Yes Items discussed: Nicotine replacement and QuitWorks Relapse Prevention: discussed the importance of a supportive environment, discussed extending NRT, discussed negative mood or depression after quitting, weight gain after smoking is common and discussed dietary, exercise and/or lifestyle changes Number of minutes spent counselin CPT code: 46100 - 4-10 Minutes Thrive Assessment: Date of Thrive Assessment Date Thrive assessed 11/12/23 06/15/24 14:07 Resp Effort & Inspection: normal respiratory effort Auscultation: clear to auscultation bilaterally Cardio Jugular venous distension: no JVD Rate: regular rate Rhythm: regular rhythm Heart sounds: S1 normal heart sound present and S2 normal heart sound present Extrem General: Yes full ROM Office Procedures Flu Questionnaire Does the patient have a severe egg allergy?: No Results AMB Hemoglobin A1c AMB Hemoglobin A1c 8.3 % Last Edit by MARIA ISABEL Trevino on 06/15/24 14:24 Immunizations Fluarix Triv [id number] (PF) 45 mcg (15 mcg x 3)/0.5 mL IM syringe Performing Provider: Amelia Banuelos MD [facility] [place] [facility] Documented (not given) by: MARIA ISABEL Trevino on 06/15/24 14:14 Reason Not Given: Patient Refused Results Reviewed Results Reviewed: Laboratory Last Values Hgb A1c (Clinic) 8.3 % (4.0-6.0) H 06/15/24 14:08 Coding Level of Care Code Est Pt Level 4 (04055) Complex EM visit Add On G2211 Diagnoses Mild major depression F32.0 Diabetes mellitus, with long-term current use of insulin E11.9; Z79.4 Hyperlipidemia LDL goal <70 E78.5 Essential (primary) hypertension I10 Chronic GERD K21.9 Additional Codes Vital Signs *Quality* - CPT code: 49034 - 4-10 Minutes ([id number]) Time Spent (min) 23 Assessment & Plan Assessment & Plan (1) Mild major depression: Code(s): F32.0 - Major depressive disorder, single episode, mild Category: Medical (2) Diabetes mellitus, with long-term current use of insulin: Code(s): E11.9 - Type 2 diabetes mellitus without complications; Z79.4 - watermelon inspector (current) use of insulin Category: Medical (3) Hyperlipidemia LDL goal <70: Code(s): E78.5 - Hyperlipidemia, unspecified Category: Medical (4) Essential (primary) hypertension: Code(s): I10 - Essential (primary) hypertension Category: Medical (5) Chronic GERD: Code(s): K21.9 - Gastro-esophageal reflux disease without esophagitis Category: Medical Plan - Essential Hypertension: Reinforce daily adherence to anti-hypertensive medications, particularly amlodipine and lisinopril. - Hypercholesterolemia: Plan for repeat lipid panel, adherence to atorvastatin 80 mg/daily, and lifestyle modifications. - Type 2 Diabetes Mellitus: Adjust Lantus to 45 units. Monitor blood glucose regularly and maintain dietary control. - Anxiety and Depression: Continue escitalopram for management. Discussed non-pharmacological interventions. - Tobacco Use Disorder: Discussed options for smoking cessation, potentially using nicotine replacement therapy. Information on QuitWorks provided. - Chronic Pain: Continue Flexeril as needed for muscle pain. Consider lidocaine patches for additional relief. - Dyspepsia: Continue Dicyclomine as needed. Review dietary influences and avoid aggravating factors. Patient was informed and verbally consented to the use of an ambient scribe for clinic note documentation during this visit. Orders: Orders Vitamin D 25-OH Total Today E55.9 - Vitamin D deficiency, unspecified Influenza [id number] Immunization Today Z23 - Encounter for immunization AMB Hemoglobin A1c Today E11.9 - Type 2 diabetes mellitus without complications, Z79.4 - watermelon inspector (current) use of insulin Lipid Panel Today E78.5 - Hyperlipidemia, unspecified Microalbumin, Random (w Creat) Today R80.9 - Proteinuria, unspecified Comprehensive [place]. Panel Fast Today E11.9 - Type 2 diabetes mellitus without complications, Z79.4 - watermelon inspector (current) use of insulin Medications: New lidocaine 4% (Aspercreme (lidocaine)) 1 patch topical DAILY PRN 15 ea 0RF pain 30 days Patient Instructions: - Adhere strictly to prescribed medications for hypertension, hyperlipidemia, and diabetes. - Monitor blood glucose and report significant deviations. - Take Flexeril as needed for muscle pain, and follow up on the use of lidocaine patches. - Avoid penicillin due to allergy. - Explore smoking cessation resources and consider lifestyle changes to support quitting. - Review diet plan to manage cholesterol and manage dyspepsia. - Return for follow-up in three weeks for further evaluation and management.
[2024-06-15 14:15] VITALS: BP 152/84; BMI 29.6
== END 2024-06-15 14:37 | disposition home or self-care (01) ==
PROVIDERS: PCP Internal Medicine; Visit Provider Internal Medicine
DX: F32.0 Major depressive disorder, single episode, mild (principal); E11.9 Type 2 diabetes mellitus without complications; Z79.4 Long term (current) use of insulin; E78.5 Hyperlipidemia, unspecified; I10 Essential (primary) hypertension; K21.9 Gastro-esophageal reflux disease without esophagitis; Z23 Encounter for immunization

== ENCOUNTER → 2024-06-15 13:51 | Outpatient (BNVA) | payer OTHER, SELFPAY | PROVIDERS: PCP Internal Medicine; Visit Provider Internal Medicine | DX: F32.0 Major depressive disorder, single episode, mild (principal); E11.9 Type 2 diabetes mellitus without complications; Z79.4 Long term (current) use of insulin; I10 Essential (primary) hypertension; K21.9 Gastro-esophageal reflux disease without esophagitis | CPT/HCPCS: 83036; 90471; 99212 ==

== ENCOUNTER → 2024-07-01 09:48 | Outpatient (BNVA) | payer OTHER, SELFPAY | PROVIDERS: PCP Internal Medicine ==

== ENCOUNTER 2024-09-21 10:36 | Outpatient (REF) | payer OTHER, SELFPAY ==
[2024-09-21 12:09] LABS: Anion Gap 11 (12-20); Blood Urea Nitrogen 13 mg/dL (9-16); Calcium 8.8 mg/dL (8.4-10.2); Carbon Dioxide 28 mmol/L (22-29); Chloride 103 mmol/L (96-108); Estimated Glomerular Filt Rate > 60; Glucose Random 299 mg/dL (60-115); Sodium 138 mmol/L (135-145)
[2024-09-21 12:27] LABS: TSH reflex Free T4 0.84 uIU/mL (0.32-4.0)
[2024-09-21 12:48] LABS: Folate 6.6 ng/mL (> or = 4.0); Vitamin B12 250 pg/mL (200-900)
== END 2024-09-21 10:37 | disposition home or self-care (01) ==
LOC: HO.LAB 10:36
PROVIDERS: PCP Internal Medicine; Visit Provider Psychiatry & Neurology Neurology
DX: G30.9 Alzheimer's disease, unspecified (principal)
CPT/HCPCS: 36415; 80048; 82607; 82746; 84443

== ENCOUNTER 2024-10-08 14:58 | Outpatient (REF) | payer OTHER, SELFPAY ==
--- NOTE | ~2024-10-08 | CT_ITS ---
CLINICAL HISTORY: alzheimers dementia CT head without contrast Comparison: None Findings: No evidence of acute territorial infarct. There is patchy low density in the periventricular and subcortical white matter. Asymmetric bilateral frontal and temporal volume loss. No hydrocephalus. No hemorrhage, mass effect, mass lesion or midline shift. No abnormal extra-axial fluid. No calvarial fracture. Paranasal sinuses and mastoid air cells are clear. Impression: No evidence of acute process. Asymmetric bilateral frontal and temporal volume loss. This document has been electronically signed by: Ricardo Ascencio MD on 10/09/2024 13:14:44
== END 2024-10-08 14:59 | disposition home or self-care (01) ==
LOC: HO.CT 14:58
PROVIDERS: PCP Internal Medicine; Visit Provider Psychiatry & Neurology Neurology
DX: G30.9 Alzheimer's disease, unspecified (principal)
CPT/HCPCS: 70450

== ENCOUNTER → 2024-10-08 15:01 | Outpatient (BNV) | payer OTHER, SELFPAY | PROVIDERS: PCP Internal Medicine; Visit Provider Radiology Vascular & Interventional Radiology | DX: G31.89 Other specified degenerative diseases of nervous system (principal) | CPT/HCPCS: 70450 ==

== ENCOUNTER 2024-10-20 13:52 | Outpatient (AMB) | payer OTHER, SELFPAY ==
--- NOTE | 2024-10-20 13:59 | A.OFFPC_ITS ---
Vital Signs 10/20/24 14:06 Height 4 ft 8 in Weight 135 lb BMI 30.3 BP 130/70 Blood Pressure Location Lt brachial Position Sitting Intake Visit Reasons: dm Intake Note: Patient here for a follow up DM Counter Intelligence Technician Required: Yes Counter Intelligence Technician Language: Automated Teller Manager Name: Amelia Banuelos MD Information Interpreted: non-clinical & clinical Accompanied by: Self / Same As Patient Allergies Penicillins [PENICILLINS] Allergy (Mild, Verified 10/20/24 14:20) RASH Medication List - Last Reconciled 10/20/24 by Amelia Banuelos MD [adult pullups As directed] amlodipine 5 mg PO DAILY 90 days atorvastatin 80 mg PO BEDTIME 90 days blood sugar diagnostic (FreeStyle Lite Strips) 1 strip miscellaneous BID 90 days calcium citrate 500 mg (2 x 250 mg calcium) PO DAILY 90 days cyclobenzaprine 10 mg PO BEDTIME 30 days dicyclomine 20 mg PO QID 30 days disposable gloves medium sized gloves docusate sodium 100 mg PO BID 90 days ergocalciferol (vitamin D2) 1,250 mcg PO QWEEK 30 days escitalopram oxalate 10 mg PO DAILY 90 days gabapentin 800 mg PO TID 90 days insulin glargine (Lantus U-100 Insulin) 45 units (0.45 mL) subcut DAILY 30 days lancets (TRUEplus Lancets) Use 1 lancet once a day lidocaine 4% (Aspercreme (lidocaine)) 1 patch topical DAILY PRN 30 days lisinopril 20 mg PO DAILY 90 days omeprazole 40 mg PO DAILY 90 days ondansetron 4 mg PO Q12H 30 days peg 3350-electrolytes 236-22.74-6.74 -5.86 gram (Golytely) 240 mL PO Q10M 1 day pen needle, diabetic As directed 4 times a day [recliner As directed] [sanitary pads As directed] trazodone 50 mg PO BEDTIME PRN 90 days [wipes As directed] Tobacco use date assessed: 10/20/24 Fall risk assessment: No Falls in past year Last assessed Fall Risk: 10/20/24 Dental Screening Dental Screen Date: 10/20/24 Did you have a dental visit in the last 12 months?: No Did you have a dental problem in the last 6 months where you did not have access to dental care?: No Was dental information given to patient?: Patient has dentist HPI HPI Comments History of Present Illness Details The patient is a 78-year-old female presenting with poorly controlled Type 2 Diabetes Mellitus. She reports high blood glucose readings and acknowledges difficulty in adhering to insulin therapy due to personal and familial stressors. Her A1c is 12.2%, and recent serum glucose was 295 mg/dL. Underlying conditions include hypertension, dyslipidemia, and neuropathy associated with diabetes. The patient uses multiple medications, including insulin, antihypertensives, and antidepressants. Noncompliant with her insulin. She reports stress associated with her mother's health, impacting her self-care routines. The patient has agreed to necessary diagnostic testing, including colorectal cancer screening and mammography. [facility] Medical History (Updated 10/20/24 @ 14:37 by Amelia Banuelos MD) Essential (primary) hypertension Dyslipidemia Arthritis Surgical History History of laparoscopic cholecystectomy History of section Family History Father Hypertension Stroke Mother No problems noted. Son No problems noted. Brother No problems noted. Brother No problems noted. Brother No problems noted. Sister No problems noted. Daughter No problems noted. Daughter No problems noted. Social History Housing: Apartment Alcohol intake: never Patient Tobacco Use Status: Current everyday Tobacco user Cigarettes Per Day: 10 e-Cigarette/Vaping Use: Never Used Second Hand Smoke Exposure: No service: No Current occupational status: disabled Cognitive needs: Yes Hearing needs: No Vision needs: No Questionnaire PHQ-9 Over the last 2 weeks, how often have you been bothered by any of the following problems? 1. Little interest or pleasure in doing things: not at all 2. Feeling down, depressed, or hopeless: several days 3. Trouble falling or staying asleep, or sleeping too much: several days 4. Feeling tired or having little energy: not at all 5. Poor appetite or overeating: not at all 6. Feeling bad about yourself - or that you are a failure or have let yourself or your family down: not at all 7. Trouble concentrating on things, such as reading the newspaper or watching television: not at all 8. Moving or speaking so slowly that other people could have noticed. Or the opposite - being so fidgety or restless that you have been moving around a lot more than usual: not at all 9. Thoughts that you would be better off or of hurting yourself in some way: not at all Total score: 2 Depression Screening Interpretation: Positive Depression Screening Follow-up: Existing condition and Follow-up Visit Requested Depression Screening Done: Yes 83165 - PHQ-9 Billing: Yes Source: Developed by Drs. John Vazquez, Brianne Pérez, Denis Fall and colleagues, with an educational radhika from [email or web address]. Thrive Questionnaire Date Thrive assessed: 10/20/24 I am a: Patient What is your living situation today?: I have a steady place to live Within the past 12 months, did the food you bought not last and you didn't have the money to get more?: Never true Within the past 12 months, did you worry whether your food would run out before you got money to buy more?: Never true Do you have trouble paying for medicines?: No Do you have trouble getting transportation to medical appointments?: No Do you have trouble paying your heating and electricity bill?: No Do you have trouble taking care of your child, family member or friend?: No Do you have trouble with day-to-day activities such as bathing, preparing meals, shopping, managing finances, etc.?: No Are you currently unemployed and looking for a job?: No Are you interested in more education?: No Please select the resources that you would like help with: None Currently or been in a relationship where the following occur: No concerns reported THRIVE Score: 0 AUDIT C Alcohol Use Questionnaire (AUDIT-C) 1. How often do you have a drink containing alcohol?: Never Total Score: 0 ANNA-7 AMB Questionnaire ANNA-7 Date ANNA - 7 assessed: 10/20/24 Feeling nervous, anxious, or on edge: 1 = Several days Not being able to stop or control worryin = Not at all Worrying too much about different things: 1 = Several days Trouble relaxin = Not at all Being so restless that it is hard to sit still: 0 = Not at all Becoming easily annoyed or irritable: 0 = Not at all Feeling afraid as if something awful might happen: 0 = Not at all Total ANNA-7 score (0-4 normal; 5-9 mild; 10-14 moderate; 15-21 severe): 2 Source: Developed by Drs. John Vazquez, Brianne Pérez, Denis Fall and colleagues, with an educational radhika from [email or web address]. ANNA-7 Assessment Billing ANNA-7 Assessment Tool: ANNA-7 Assessment 46492 Review of Systems Const All systems reviewed & are unremarkable except as noted in HPI and below Card Denies chest pain at rest, Denies chest pain with activity, Denies edema, Denies irregular heart rhythm, Denies claudication, Denies dyspnea, Denies dyspnea on exertion, Denies orthopnea, Denies paroxysmal nocturnal dyspnea and Denies slow heart rate Resp Denies cough, Denies dyspnea and Denies dyspnea on exertion GI Denies abdominal pain, Denies change in bowel habits, Denies excessive flatus, Denies nausea and Denies vomiting Denies urinary incontinence, Denies urinary hesitancy and Denies urinary urgency Musc Denies atrophy, Denies deformity and Denies limited range of motion Physical exam (Primary Care) Vital Signs: Last Vital Signs BP 130/70 10/20/24 14:06 BMI result Body Mass Index 30.3 BMI Assessment/Plan discussion: High BMI High, discussed plan: lifestyle, weight reduction, dietary and physical activity Tobacco/Smoking Status: Tobacco use Status Tobacco use date assessed 10/20/24 10/20/24 14:11 Patient Tobacco Use Status Current everyday Tobacco 10/20/24 14:02 e-Cigarette/Vaping Use Never Used 10/20/24 14:02 Are you ready to quit: No Tobacco cessation counseling provided: Yes Items discussed: Nicotine replacement and QuitWorks Relapse Prevention: discussed the importance of a supportive environment, discussed extending NRT, discussed negative mood or depression after quitting, weight gain after smoking is common and discussed dietary, exercise and/or lifestyle changes Number of minutes spent counselin CPT code: 83293 - 4-10 Minutes PHQ-9: PHQ-9 Score PHQ-9: Total score 2 10/20/24 14:25 Depression Screening Interpretation: Positive Depression Screening Follow-up: Existing condition and Follow-up Visit Requested Thrive Assessment: Date of Thrive Assessment Date Thrive assessed 10/20/24 10/20/24 14:02 Currently or been in a relationship where the following occur: No concerns reported Neck Neck: Yes normal visual inspection and Yes supple Resp Effort & Inspection: normal respiratory effort Auscultation: clear to auscultation bilaterally Cardio Jugular venous distension: no JVD Rate: regular rate Rhythm: regular rhythm Heart sounds: S1 normal heart sound present and S2 normal heart sound present Extrem General: Yes full ROM Results AMB Hemoglobin A1c AMB Hemoglobin A1c 12.2 % Last Edit by MARIA ISABEL Trevino on 10/20/24 14: 12 Results Reviewed Results Reviewed: Laboratory Last Values Hgb A1c (Clinic) 12.2 % (4.0-6.0) H 10/20/24 13:58 Coding Level of Care Code Est Pt Level 4 (98008) Complex EM visit Add On G2211 Diagnoses Diabetes mellitus, with long-term current use of insulin E11.9; Z79.4 Mild major depression F32.0 Hyperlipidemia LDL goal <70 E78.5 Essential (primary) hypertension I10 Diabetic neuropathy E11.40 Additional Codes ANNA-7 Assessment Billing - ANNA-7 Assessment Tool: ANNA-7 Assessment 58268 ([id number]) PHQ-9 - 39354 - PHQ-9 Billing: Yes ([id number]) Vital Signs *Quality* - CPT code: 65610 - 4-10 Minutes ([id number]) Time Spent (min) 22 Assessment & Plan Assessment & Plan (1) Diabetes mellitus, with long-term current use of insulin: Code(s): E11.9 - Type 2 diabetes mellitus without complications; Z79.4 - [facility] (current) use of insulin Category: Medical (2) Mild major depression: Code(s): F32.0 - Major depressive disorder, single episode, mild Category: Medical (3) Hyperlipidemia LDL goal <70: Code(s): E78.5 - Hyperlipidemia, unspecified Category: Medical (4) Essential (primary) hypertension: Code(s): I10 - Essential (primary) hypertension Category: Medical (5) Diabetic neuropathy: Code(s): E11.40 - Type 2 diabetes mellitus with diabetic neuropathy, unspecified Category: Medical Plan The patient's diabetic management requires improvement, with a focus on administering 45 units of Lantus daily to regulate blood glucose levels. The current regimen for hypertension and lipid management appears appropriate, although consistent lipid monitoring is warranted. The patient's respiratory and cardiovascular systems show no acute changes. Addressing personal stressors and encouraging tobacco cessation form critical aspects of the ongoing care plan. Our goal is to stabilize her glycemic control and to review cardiovascular markers, ensuring these remain within target ranges. Patient was informed and verbally consented to the use of an ambient scribe for clinic note documentation during this visit. We discussed the critical need for adherence to the insulin regimen to improve diabetes management, emphasizing the long-term benefits of maintaining glycemic control. The patient understands the risks of high A1c levels and has committed to better insulin adherence. We addressed her stress and its impact on health behaviors, highlighting support options and potential cessation of tobacco. The patient agreed to ongoing monitoring and laboratory assessments while open to scheduling future screening tests as planned. Orders: Orders Lipid Panel Today E78.5 - Hyperlipidemia, unspecified Microalbumin, Random (w Creat) Today R80.9 - Proteinuria, unspecified AMB Hemoglobin A1c Today E11.9 - Type 2 diabetes mellitus without complications, Z79.4 - marine oil terminal superintendent (current) use of insulin Comprehensive [place]. Panel Fast Today E11.9 - Type 2 diabetes mellitus without complications, Z79.4 - marine oil terminal superintendent (current) use of insulin Medications: Refilled insulin glargine (Lantus U-100 Insulin) 45 units (0.45 mL) subcut DAILY 13.5 mL 6RF 30 days Patient Instructions: - Administer 45 units of Lantus daily for diabetes management and be compliant. - Follow the prescribed medication regimen for hypertension, dyslipidemia, and mood disorders. - Report any new symptoms or changes in condition promptly. - Schedule and complete the upcoming colonoscopy and mammogram. - Seek support for stress management and consider tobacco cessation. - Engage in consistent follow-up appointments to assess progress.
[2024-10-20 14:06] VITALS: BP 130/70; BMI 30.3
== END 2024-10-20 14:38 | disposition home or self-care (01) ==
LOC: HO.HMCH 13:53
PROVIDERS: PCP Internal Medicine; Visit Provider Internal Medicine
DX: E11.40 Type 2 diabetes mellitus with diabetic neuropathy, unspecified (principal); Z79.4 Long term (current) use of insulin; F32.0 Major depressive disorder, single episode, mild; E78.5 Hyperlipidemia, unspecified; I10 Essential (primary) hypertension

== ENCOUNTER → 2024-10-20 13:52 | Outpatient (BNVA) | payer OTHER, SELFPAY | PROVIDERS: PCP Internal Medicine; Visit Provider Internal Medicine | DX: E11.40 Type 2 diabetes mellitus with diabetic neuropathy, unspecified (principal); I10 Essential (primary) hypertension; E78.5 Hyperlipidemia, unspecified; F32.0 Major depressive disorder, single episode, mild; Z79.4 Long term (current) use of insulin | CPT/HCPCS: 83036; 96127; 99212 ==

== ENCOUNTER 2024-12-03 11:53 | Outpatient (REF) | payer OTHER, SELFPAY | END 2024-12-03 11:54 | disposition home or self-care (01) | LOC: HO.MAMMO 11:53 | PROVIDERS: PCP Internal Medicine; Visit Provider Internal Medicine | DX: Z12.31 Encounter for screening mammogram for malignant neoplasm of breast (principal) | CPT/HCPCS: 77063; 77067 ==

== ENCOUNTER → 2024-12-03 12:15 | Outpatient (BNV) | payer OTHER, SELFPAY | PROVIDERS: PCP Internal Medicine; Visit Provider Internal Medicine | DX: Z12.31 Encounter for screening mammogram for malignant neoplasm of breast (principal) | CPT/HCPCS: 77063; 77067 ==

== ENCOUNTER 2025-03-01 08:48 | Outpatient (REF) | payer OTHER, SELFPAY ==
[2025-03-01 09:56] LABS: Alanine Aminotransferase 15 U/L (0-31); Albumin Level 4.2 g/dL (3.5-5.0); Alkaline Phosphatase 93 U/L (39-117); Anion Gap 10 (12-20); Aspartate Amino Transferase 22 U/L (5-31); Blood Urea Nitrogen 5 mg/dL (9-16); Calcium 9.0 mg/dL (8.4-10.2); Carbon Dioxide 31 mmol/L (22-29); Chloride 105 mmol/L (96-108); Cholesterol 233 mg/dL (<200); Estimated Glomerular Filt Rate > 60; HDL Cholesterol 42 mg/dL (>40); Potassium 3.9 mmol/L (3.3-5.1); Sodium 142 mmol/L (135-145); Total Protein 6.6 g/dL (6.5-8.0); Triglycerides 252 mg/dL (<150)
== END 2025-03-01 08:49 | disposition home or self-care (01) ==
LOC: HO.LAB 08:48
PROVIDERS: Visit Provider Internal Medicine
DX: E11.9 Type 2 diabetes mellitus without complications (principal); E78.5 Hyperlipidemia, unspecified; E55.9 Vitamin D deficiency, unspecified; Z79.4 Long term (current) use of insulin
CPT/HCPCS: 36415; 80053; 80061; 82043; 82306; 82570

== ENCOUNTER 2025-03-09 10:45 | Outpatient (AMB) | payer OTHER, SELFPAY ==
--- NOTE | 2025-03-09 10:53 | MHC.PC.OV ---
Vital Signs 03/09/25 10:55 Height 4 ft 8 in Weight 126 lb 2 oz BMI 28.3 BP 120/64 Blood Pressure Location Lt brachial Position Sitting Pulse 67 Pulse Source Pulse Oximeter Pulse Oximetry (%) 97 Oxygen Delivery Method Room Air Intake Visit Reasons: dm Pharmacognosist Required: No Accompanied by: Self / Same As Patient Allergies Penicillins (PENICILLINS) Allergy (Mild, Verified 03/09/25 11:02) RASH Medication List - Last Reconciled 03/09/25 by Amelia Banuelos MD [adult pullups As directed] amlodipine 5 mg PO DAILY 90 days atorvastatin 80 mg PO BEDTIME 90 days blood sugar diagnostic (FreeStyle Lite Strips) 1 strip miscellaneous BID 90 days calcium citrate 500 mg (2 x 250 mg calcium) PO DAILY 90 days cyclobenzaprine 10 mg PO BEDTIME 30 days dicyclomine 20 mg PO QID 30 days disposable gloves medium sized gloves docusate sodium 100 mg PO BID 90 days ergocalciferol (vitamin D2) 1,250 mcg PO QWEEK 30 days escitalopram oxalate 10 mg PO DAILY 90 days gabapentin 800 mg PO TID 90 days insulin glargine (Lantus U-100 Insulin) 45 units (0.45 mL) subcut DAILY 30 days lancets (TRUEplus Lancets) Use 1 lancet once a day lidocaine 4% (Aspercreme (lidocaine)) 1 patch topical DAILY PRN 30 days lisinopril 20 mg PO DAILY 90 days omeprazole 40 mg PO DAILY 90 days ondansetron 4 mg PO Q12H 30 days peg 3350-electrolytes 236-22.74-6.74 -5.86 gram (Golytely) 240 mL PO Q10M 1 day pen needle, diabetic As directed 4 times a day [recliner As directed] [sanitary pads As directed] trazodone 50 mg PO BEDTIME PRN [wipes As directed] Tobacco use date assessed: 03/09/25 Fall risk assessment: No Falls in past year Last assessed Fall Risk: 03/09/25 Dental Screening Dental Screen Date: 03/09/25 Did you have a dental visit in the last 12 months?: No Did you have a dental problem in the last 6 months where you did not have access to dental care?: No Was dental information given to patient?: No HPI HPI Comments History of Present Illness Details The patient is a 79-year-old female presenting with management of hypertension, hyperlipidemia, diabetes mellitus, and tobacco use disorder. Hypertension has been well-controlled with a recent blood pressure reading of 120/64 mmHg. The patient is currently on amlodipine 5 mg for blood pressure management. Hyperlipidemia remains a concern with a total cholesterol level of 233 mg/dL, triglycerides at 252 mg/dL, and LDL cholesterol at 141 mg/dL. The patient is on atorvastatin 80 mg, but additional medication may be required to achieve target LDL levels. The patient has a history of depression with anxiety, managed with citalopram and trazodone. She reports smoking approximately 10 to 20 cigarettes a day, which exacerbates her anxiety. Diabetes mellitus management has shown improvement with current blood glucose levels at 130 mg/dL, down from a previous A1c of 12.2%. The patient is on Lantus and lisinopril for diabetes and associated conditions. The patient experiences urinary incontinence, managed with the use of pull-ups. She also reports symptoms of dyspepsia, constipation, gastroesophageal reflux disease, and nausea, for which she is taking dicyclomine, docusate, omeprazole, and ondansetron respectively. Neuropathy is managed with gabapentin 800 mg three times a day. [facility] Medical History Essential (primary) hypertension Dyslipidemia Arthritis Surgical History History of laparoscopic cholecystectomy History of section Family History Father Hypertension Stroke Mother No problems noted. Son No problems noted. Brother No problems noted. Brother No problems noted. Brother No problems noted. Sister No problems noted. Daughter No problems noted. Daughter No problems noted. Social History Housing: Apartment Alcohol intake: never Patient Tobacco Use Status: Current everyday Tobacco user Cigarettes Per Day: 10 e-Cigarette/Vaping Use: Never Used Second Hand Smoke Exposure: No service: No Current occupational status: disabled Cognitive needs: Yes Hearing needs: No Vision needs: No Questionnaire PHQ-9 Over the last 2 weeks, how often have you been bothered by any of the following problems? 1. Little interest or pleasure in doing things: several days 2. Feeling down, depressed, or hopeless: several days 3. Trouble falling or staying asleep, or sleeping too much: not at all 4. Feeling tired or having little energy: several days 5. Poor appetite or overeating: several days 6. Feeling bad about yourself - or that you are a failure or have let yourself or your family down: not at all 7. Trouble concentrating on things, such as reading the newspaper or watching television: not at all 8. Moving or speaking so slowly that other people could have noticed. Or the opposite - being so fidgety or restless that you have been moving around a lot more than usual: not at all 9. Thoughts that you would be better off or of hurting yourself in some way: not at all Total score: 4 Depression Screening Interpretation: Positive Depression Screening Follow-up: Existing condition, In treatment and Follow-up Visit Requested Depression Screening Done: Yes 33986 - PHQ-9 Billing: Yes Source: Developed by Drs. John Vazquez, Brianne Pérez, Denis Fall and colleagues, with an educational radhika from [employer]. Thrive Questionnaire Date Thrive assessed: 03/09/25 I am a: Patient What is your living situation today?: I have a steady place to live Within the past 12 months, did the food you bought not last and you didn't have the money to get more?: Never true Within the past 12 months, did you worry whether your food would run out before you got money to buy more?: Never true Do you have trouble paying for medicines?: No Do you have trouble getting transportation to medical appointments?: No Do you have trouble paying your heating and electricity bill?: No Do you have trouble taking care of your child, family member or friend?: No Do you have trouble with day-to-day activities such as bathing, preparing meals, shopping, managing finances, etc.?: No Are you currently unemployed and looking for a job?: No Are you interested in more education?: No Please select the resources that you would like help with: None Currently or been in a relationship where the following occur: No concerns reported THRIVE Score: 0 AUDIT C Alcohol Use Questionnaire (AUDIT-C) 1. How often do you have a drink containing alcohol?: Never Total Score: 0 Score Reviewed/Action Taken: No ANNA-7 AMB Questionnaire ANNA-7 Date ANNA - 7 assessed: 03/09/25 Feeling nervous, anxious, or on edge: 0 = Not at all Not being able to stop or control worryin = Not at all Worrying too much about different things: 0 = Not at all Trouble relaxin = Not at all Being so restless that it is hard to sit still: 0 = Not at all Becoming easily annoyed or irritable: 0 = Not at all Feeling afraid as if something awful might happen: 0 = Not at all Total ANNA-7 score (0-4 normal; 5-9 mild; 10-14 moderate; 15-21 severe): 0 Source: Developed by Drs. John Vazquez, Brianne Pérez, Denis Fall and colleagues, with an educational radhika from [employer]. ANNA-7 Assessment Billing ANNA-7 Assessment Tool: ANNA-7 Assessment 83156 Review of Systems Const All systems reviewed & are unremarkable except as noted in HPI and below Card Denies chest pain at rest, Denies chest pain with activity, Denies edema, Denies irregular heart rhythm, Denies claudication, Denies dyspnea, Denies dyspnea on exertion, Denies orthopnea, Denies paroxysmal nocturnal dyspnea and Denies slow heart rate Resp Denies cough, Denies dyspnea and Denies dyspnea on exertion GI Denies abdominal pain, Denies change in bowel habits, Denies excessive flatus, Denies nausea and Denies vomiting Physical exam (Primary Care) Vital Signs: Last Vital Signs Pulse 67 03/09/25 10:55 BP 120/64 03/09/25 10:55 Pulse Ox 97 03/09/25 10:55 Oxygen Delivery Method Room Air 03/09/25 10:55 BMI result Body Mass Index 28.3 Tobacco/Smoking Status: Tobacco use Status Tobacco use date assessed 03/09/25 03/09/25 11:00 Patient Tobacco Use Status Current everyday Tobacco 03/09/25 11:00 e-Cigarette/Vaping Use Never Used 03/09/25 11:00 Are you ready to quit: Yes Tobacco cessation counseling provided: Yes Items discussed: Nicotine replacement and QuitWorks Relapse Prevention: discussed the importance of a supportive environment, discussed extending NRT, discussed negative mood or depression after quitting, weight gain after smoking is common and discussed dietary, exercise and/or lifestyle changes Number of minutes spent counselin CPT code: 64513 - 4-10 Minutes PHQ-9: PHQ-9 Score PHQ-9: Total score 4 03/09/25 11:24 Depression Screening Interpretation: Positive Depression Screening Follow-up: Existing condition, In treatment and Follow-up Visit Requested Thrive Assessment: Date of Thrive Assessment Date Thrive assessed 03/09/25 03/09/25 11:00 Currently or been in a relationship where the following occur: No concerns reported Resp Effort & Inspection: normal respiratory effort Auscultation: clear to auscultation bilaterally Cardio Jugular venous distension: no JVD Rate: regular rate Rhythm: regular rhythm Heart sounds: S1 normal heart sound present and S2 normal heart sound present Extrem General: Yes full ROM Results AMB Hemoglobin A1c AMB Hemoglobin A1c 6.7 % Last Edit by John Crenshaw MA on 03/09/25 11:25 Results Reviewed Results Reviewed: Laboratory Last Values Hgb A1c (Clinic) 6.7 % (4.0-6.0) H 03/09/25 11:16 Coding Level of Care Code Est Pt Level 4 (66573) Complex EM visit Add On G2211 Diagnoses Mild major depression F32.0 Essential (primary) hypertension I10 Hyperlipidemia LDL goal <70 E78.5 Diabetes mellitus, with long-term current use of insulin E11.9; Z79.4 Diabetic neuropathy E11.40 Smoking F17.200 Additional Codes ANNA-7 Assessment Billing - ANNA-7 Assessment Tool: ANNA-7 Assessment 06766 ([id number]) PHQ-9 - 12709 - PHQ-9 Billing: Yes ([id number]) Vital Signs *Quality* - CPT code: 82342 - 4-10 Minutes ([id number]) Time Spent (min) 25 Assessment & Plan Assessment & Plan (1) Mild major depression: Code(s): F32.0 - Major depressive disorder, single episode, mild Category: Medical (2) Essential (primary) hypertension: Code(s): I10 - Essential (primary) hypertension Category: Medical (3) Hyperlipidemia LDL goal <70: Code(s): E78.5 - Hyperlipidemia, unspecified Category: Medical (4) Diabetes mellitus, with long-term current use of insulin: Code(s): E11.9 - Type 2 diabetes mellitus without complications; Z79.4 - intermission coordinator (current) use of insulin Category: Medical (5) Diabetic neuropathy: Code(s): E11.40 - Type 2 diabetes mellitus with diabetic neuropathy, unspecified Category: Medical (6) Smoking: Code(s): F17.200 - Nicotine dependence, unspecified, uncomplicated Category: Social Hx Plan The management plan includes continuing current antihypertensive therapy with amlodipine 5 mg, given the well-controlled blood pressure. For hyperlipidemia, the patient will continue atorvastatin 80 mg, and an additional lipid-lowering agent may be considered to achieve target LDL levels. Diabetes management will be reassessed with a repeat A1c test to evaluate improvement from the previous level of 12.2%. The patient is advised to maintain current medications, including Lantus and lisinopril, for glycemic and blood pressure control. For tobacco use disorder, the patient is encouraged to consider smoking cessation options, including nicotine patches or medications like Chantix, with a focus on reducing cigarette consumption. The patient is informed about potential side effects and the importance of a supportive environment during cessation efforts. Patient was informed and verbally consented to the use of an ambient scribe for clinic note documentation during this visit. Orders: Orders Lipid Panel 4 Months E78.5 - Hyperlipidemia, unspecified Microalbumin, Random (w Creat) 4 Months R80.9 - Proteinuria, unspecified Vitamin D 25-OH Total 4 Months E55.9 - Vitamin D deficiency, unspecified [place]. Panel Fast 4 Months E11.9 - Type 2 diabetes mellitus without complications, Z79.4 - intermission coordinator (current) use of insulin AMB Hemoglobin A1c Today Z13.9 - Encounter for screening, unspecified Medications: New cholecalciferol (vitamin D3) 25 mcg PO DAILY 90 caps 1RF 90 days varenicline tartrate take 1 tablet by mouth daily on days 1-3; then 1 tablet twice daily (morning and evening) on days 4-7 0.5 mg PO DIRECTED 28 tabs 0RF 28 days ezetimibe 10 mg PO DAILY 90 tabs 1RF 90 days Discontinued ergocalciferol (vitamin D2) Discontinued Reason: Patient Completed Course 1,250 mcg PO QWEEK 30 days 5 caps 1RF
[2025-03-09 10:55] VITALS: BP 120/64; PULSE 67; O2SAT 97; BMI 28.3
== END 2025-03-09 11:24 | disposition home or self-care (01) ==
LOC: HO.HMCH 10:46
PROVIDERS: PCP Internal Medicine; Visit Provider Internal Medicine
DX: E11.69 Type 2 diabetes mellitus with other specified complication (principal); Z79.4 Long term (current) use of insulin; E11.40 Type 2 diabetes mellitus with diabetic neuropathy, unspecified; E78.5 Hyperlipidemia, unspecified; F32.0 Major depressive disorder, single episode, mild; I10 Essential (primary) hypertension; F17.210 Nicotine dependence, cigarettes, uncomplicated

== ENCOUNTER → 2025-03-09 10:45 | Outpatient (BNVA) | payer OTHER, SELFPAY | PROVIDERS: PCP Internal Medicine; Visit Provider Internal Medicine | DX: E11.40 Type 2 diabetes mellitus with diabetic neuropathy, unspecified (principal); I10 Essential (primary) hypertension; E78.5 Hyperlipidemia, unspecified; F41.9 Anxiety disorder, unspecified; R32 Unspecified urinary incontinence; R10.13 Epigastric pain; K59.00 Constipation, unspecified; K21.9 Gastro-esophageal reflux disease without esophagitis; R11.0 Nausea; F32.0 Major depressive disorder, single episode, mild; F17.200 Nicotine dependence, unspecified, uncomplicated | CPT/HCPCS: 83036; 96127; 99212 ==